=== PATIENT | female | born 1990 ===

== ENCOUNTER 2018-11-05 16:10 | Observation (INO) | payer MEDICAID ==
[~2018-11-05] VITALS: Ht 175.3 cm; Wt 72.7 kg
[2018-11-05 16:46] LABS: APPEARANCE CLEAR (CLEAR); BILIRUBIN NEGATIVE (NEGATIVE); COLOR YELLOW (YELLOW); GLUCOSE NEGATIVE (NEGATIVE); HCG URINE NEGATIVE (NEGATIVE); KETONE NEGATIVE (NEGATIVE); NITRITE NEGATIVE (NEGATIVE); PROTEIN TRACE mg/dL (NEGATIVE); UROBILINOGEN NORMAL (NORMAL)
[2018-11-05 16:49] LABS: UDS - AMPHET NEGATIVE QUAL (NEGATIVE); UDS - BARB NEGATIVE QUAL (NEGATIVE); UDS - BENZO POSITIVE QUAL (NEGATIVE); UDS - COCAINE NEGATIVE QUAL (NEGATIVE); UDS - OPIATE POSITIVE QUAL (NEGATIVE); UDS - PCP NEGATIVE QUAL (NEGATIVE); UDS - THC POSITIVE QUAL (NEGATIVE)
[2018-11-05 17:18] LABS: BASOPHILS 0.2 % (0-2); EOSINOPHILS 0.1 % (0-7); HEMATOCRIT 42.5 % (36.0-48.0); HEMOGLOBIN 14.4 g/dL (12-16); IMMATURE GRANULOCYTES 0.2 % (0-5); LYMPHOCYTES 16.6 % (15-50); MCH 30.1 pg (26.0-34.0); MCHC 33.9 g/dL (31.0-37.0); MCV 88.7 fL (80.0-100.0); MEAN PLATELET VOLUME 10.1 fL (7.4-10.4); MONOCYTES 8.8 % (2-11); NEUTROPHILS 74.1 % (40-80); PLATELET COUNT 243 10x3/uL (130-400); RBC 4.79 10x6/uL (4.00-5.40); RDW 11.9 % (11.5-14.5); WBC 12.5 10x3/uL (4.8-10.8)
[2018-11-05 17:40] LABS: ALBUMIN 3.6 g/dL (3.4-5.0); ALKALINE PHOSPHATASE 94 U/L (46-116); ALT (SGPT) 64 U/L (10-68); BILIRUBIN - TOTAL 0.22 mg/dL (0.2-1.3); CALC OSMOLALITY 281 mosm/kg (275-300); CALCIUM 9.3 mg/dL (8.5-10.1); CARBON DIOXIDE 29.3 mmol/L (21.0-32.0); CHLORIDE - SERUM 103 mmol/L (98-107); CREATININE - SERUM 0.9 mg/dL (0.6-1.3); GLUCOSE 89 mg/dL (74-106); MAGNESIUM - SERUM 2.1 mg/dL (1.8-2.4); POTASSIUM - SERUM 4.3 mmol/L (3.5-5.1); PROTEIN - SERUM 8.6 g/dL (6.4-8.2); SODIUM 141 mmol/L (136-145); UREA NITROGEN 17 mg/dL (7-18); eGFR NON AFRICAN AMERICAN 81 mL/min (90-120)
[2018-11-05 18:05] VITALS: BP 134/82
[2018-11-05 20:32] VITALS: BP 131/88; BMI 23.6
[2018-11-05 21:00] VITALS: BP 108/65
[2018-11-05 22:00] VITALS: BP 106/61
[2018-11-05 23:00] VITALS: BP 104/71
[2018-11-06] VITALS (8 sets, daily range): BP systolic 99–123; BP diastolic 57–87; Ht 175.3 cm; Wt 72.7 kg
[2018-11-06 04:53] LABS: BASOPHILS 0.2 % (0-2); EOSINOPHILS 0.4 % (0-7); HEMATOCRIT 37.1 % (36.0-48.0); HEMOGLOBIN 12.4 g/dL (12-16); IMMATURE GRANULOCYTES 0.2 % (0-5); LYMPHOCYTES 31.7 % (15-50); MCH 29.4 pg (26.0-34.0); MCHC 33.4 g/dL (31.0-37.0); MCV 87.9 fL (80.0-100.0); MEAN PLATELET VOLUME 10.2 fL (7.4-10.4); NEUTROPHILS 58.5 % (40-80); PLATELET COUNT 238 10x3/uL (130-400); RBC 4.22 10x6/uL (4.00-5.40); RDW 11.8 % (11.5-14.5); WBC 9.4 10x3/uL (4.8-10.8)
[2018-11-06 05:04] LABS: ALBUMIN 2.9 g/dL (3.4-5.0); ALKALINE PHOSPHATASE 70 U/L (46-116); ALT (SGPT) 54 U/L (10-68); BILIRUBIN - TOTAL 0.26 mg/dL (0.2-1.3); CALCIUM 8.4 mg/dL (8.5-10.1); CARBON DIOXIDE 31.2 mmol/L (21.0-32.0); CHLORIDE - SERUM 105 mmol/L (98-107); GLUCOSE 81 mg/dL (74-106); POTASSIUM - SERUM 3.9 mmol/L (3.5-5.1); PROTEIN - SERUM 6.9 g/dL (6.4-8.2); SODIUM 141 mmol/L (136-145)
[2018-11-06 05:12] LABS: CALC OSMOLALITY 279 mosm/kg (275-300); CREATININE - SERUM 0.6 mg/dL (0.6-1.3); UREA NITROGEN 12 mg/dL (7-18); eGFR NON AFRICAN AMERICAN > 90 mL/min (90-120)
--- NOTE | 2018-11-06 12:06 | MORECARE ---
CASE MANAGEMENT DISCHARGE SUMMARY PATIENT: MARIKA LOPEZ UNIT: [id number] ADM DATE: 11/05/18 AGE: 28 : 86 SEX: F ROOM/BED: D.[facility] AUTHOR: NAIMA MONTANA PHYSICIAN: REFERRING PHYSICIAN: BERNARDINO GOLDSTEIN MD DATE OF SERVICE: 11/06/18 Discharge Plan Patient Name: MARIKA LOPEZ Facility: [facility]:[place] : 1990 Planned Disposition: Anticipated Discharge Date: Discharge Date: 11/06/2018 Expected LOS: Initial Reviewer: [email or web address] Initial Review Date: 11/05/2018 Generated: 11/06/18 1:06 pm Patient Name: MARIKA LOPEZ Page 14058 at 1206 All edits/amendments must be made on the electronic document DICTATION DATE: 11/06/18 1205 TATTOO ARTIST: LISS 11/06/18 1205 RPT#: [id number] DC DATE:11/06/18 STATUS: DIS IN [facility] [address] [place] [address] END OF REPORT
== END 2018-11-06 11:36 | disposition home or self-care (01) ==
LOC: D.ER 16:10 → EDBD 16:10 → D.ICU 18:32 → OBSVTIME 19:02 → D.ICU 11-06 11:36
PROVIDERS: Family Medicine; ADMIT Internal Medicine Nephrology; ATTEND Internal Medicine Nephrology
DX: T40.1X1A Poisoning by heroin, accidental (unintentional), initial encounter (principal); F17.203 Nicotine dependence unspecified, with withdrawal